=== PATIENT | female | born 1960 | race Caucasian/White ===

== ENCOUNTER 2021-12-10 22:19 | Inpatient (IN) | payer BC ==
[~2021-12-10] VITALS: Ht 165.1 cm; Wt 72.6 kg
[2021-12-10] MEDS ORDERED: FAMOTIDINE 20 MG/2 ML VIAL IV STA (23:22)
[2021-12-10] MEDS ORDERED: ALBUTEROL/IPRATROPIUM 3 ML NEB NEB PRN (23:30)
[2021-12-10] MEDS ORDERED: ONDANSETRON HCL INJ 2MG/ML 2ML 2 MG/ML VIAL IV PRN (23:30)
[2021-12-10] MEDS ORDERED: HYDROCODONE/APAP 5MG-325MG TAB PO PRN (23:30)
[2021-12-10] MEDS ORDERED: BENZONATATE 100 MG CAP PO PRN (23:30)
[2021-12-10] MEDS ORDERED: DEXTROSE 5%/0.9% SOD CHL 1,000 ML IV SCH (23:30)
[2021-12-10] MEDS: ALBUTEROL/IPRATROPIUM 3 ML NEB NEB SCH (23:30)
[2021-12-11] VITALS (10 sets, daily range): BP systolic 93–104; BP diastolic 62–73
[2021-12-11] MEDS: METHYLPREDNISOLONE SOD SUCC 40 MG/ML VIAL 1ML IV SCH ×2 (00:29→08:58)
[2021-12-11] MEDS: ALBUTEROL/IPRATROPIUM 3 ML NEB NEB SCH ×4 (01:27→19:25)
[2021-12-11 06:40] LABS: BASOPHILS % 0.5 % (0.0-1.0); HEMOGLOBIN 11.2 g/dL (12.0-16.0); LYMPHOCYTES # (AUTO) 1.1 (1.0-3.2); LYMPHOCYTES % 16.7 % (18.0-39.1); MEAN CORPUSCULAR HEMOGLOBIN 28.7 pg (28-32); MEAN CORPUSCULAR VOLUME 82.1 fL (81-99); MONOCYTES # (AUTO) 0.2 (0.2-0.8); MONOCYTES % 2.5 % (4.4-11.3); NEUTROPHILS # (AUTO) 5.2 (2.1-6.9); PLATELET COUNT 89 x10e3/uL (140-360); RED CELL DISTRIBUTION WIDTH 13.3 % (11.7-14.4)
[2021-12-11 07:01] LABS: ANION GAP 12.7 mmol/L (8-16); CALCIUM 7.1 mg/dL (8.4-10.2); CREATININE, SERUM 1.76 mg/dL (0.57-1.11)
[2021-12-11 07:06] LABS: POTASSIUM 2.7 mmol/L (3.5-5.1)
[2021-12-11] MEDS ORDERED: POTASSIUM CHLORIDE 20 MEQ TAB CR PO ONE (07:45)
[2021-12-11 08:49] LABS: BAND NEUTROPHILS % (MANUAL) 2 %; LYMPHOCYTES % (MANUAL) 8 % (19-48); MONOCYTES % (MANUAL) 1 % (3.4-9.0); NEUTROPHILS % (MANUAL) 89 % (40-74); PLATELET ESTIMATE SLIGHTLY DECREASED
[2021-12-11 08:50] LABS: PLATELET MORPHOLOGY COMMENT NORMAL; RBC MORPHOLOGY COMMENT NORMAL
[2021-12-11] MEDS: FAMOTIDINE 20 MG/2 ML VIAL IV SCH ×2 (08:59→16:34)
[2021-12-11] MEDS: KCL 20MEQ/.9 SOD CHL 1,000 ML IV SCH ×2 (12:52→23:47)
[2021-12-11 15:14] LABS: ALBUMIN 2.2 g/dL (3.5-5.0); BILIRUBIN,DIRECT 0.3 mg/dL (0.0-0.5)
[2021-12-12] VITALS (8 sets, daily range): BP systolic 97–127; BP diastolic 49–74
[2021-12-12] MEDS: ALBUTEROL/IPRATROPIUM 3 ML NEB NEB SCH ×4 (01:38→19:43)
[2021-12-12 05:49] LABS: BASOPHILS % 0.4 % (0.0-1.0); HEMATOCRIT 28.7 % (34.2-44.1); LYMPHOCYTES # (AUTO) 1.7 (1.0-3.2); LYMPHOCYTES % 22.9 % (18.0-39.1); MEAN CORPUSCULAR HEMOGLOBIN 28.6 pg (28-32); MEAN CORPUSCULAR HGB CONC 34.8 g/dL (31-35); MONOCYTES # (AUTO) 0.5 (0.2-0.8); MONOCYTES % 6.1 % (4.4-11.3); NEUTROPHILS # (AUTO) 5.3 (2.1-6.9); NEUTROPHILS % 69.5 % (38.7-80.0); PLATELET COUNT 117 x10e3/uL (140-360); RED CELL DISTRIBUTION WIDTH 13.8 % (11.7-14.4)
[2021-12-12 06:27] LABS: ANION GAP 9.2 mmol/L (8-16); CALCIUM 7.2 mg/dL (8.4-10.2); CREATININE, SERUM 0.8 mg/dL (0.57-1.11); POTASSIUM 3.2 mmol/L (3.5-5.1)
[2021-12-12 06:55] LABS: PHOSPHORUS 1.5 MG/DL (2.3-4.7)
[2021-12-12 08:42] LABS: LYMPHOCYTES % (MANUAL) 4 % (19-48); MONOCYTES % (MANUAL) 1 % (3.4-9.0); NEUTROPHILS % (MANUAL) 95 % (40-74)
[2021-12-12 08:43] LABS: PLATELET ESTIMATE SLIGHTLY DECREASED; PLATELET MORPHOLOGY COMMENT NORMAL; RBC MORPHOLOGY COMMENT NORMAL
[2021-12-12] MEDS: FAMOTIDINE 20 MG/2 ML VIAL IV SCH ×2 (09:57→17:06)
[2021-12-12] MEDS ORDERED: POTASSIUM CHLORIDE 20 MEQ TAB CR PO ONE (10:30)
[2021-12-12] MEDS ORDERED: POTASSIUM CHLORIDE 10MEQ EA PO ONE (10:30)
[2021-12-12] MEDS: KCL 20MEQ/.9 SOD CHL 1,000 ML IV SCH (11:20)
[2021-12-12] MEDS: ACETAMINOPHEN 325 MG TAB PO PRN ×2 (11:34→21:16)
[2021-12-12] MEDS: ENOXAPARIN SOD INJ 40 MG/0.4 ML SYR SC SCH (17:06)
[2021-12-12] MEDS ORDERED: IOPAMIDOL 370 MG/ML 100 ML INFUS..BTL INJ ONE (19:08)
[2021-12-13] VITALS (7 sets, daily range): BP systolic 110–171; BP diastolic 67–84
[2021-12-13] MEDS: ALBUTEROL/IPRATROPIUM 3 ML NEB NEB SCH ×3 (00:15→22:00)
[2021-12-13] MEDS: KCL 20MEQ/.9 SOD CHL 1,000 ML IV SCH ×2 (03:43→15:09)
[2021-12-13 06:11] LABS: BASOPHILS % 0.6 % (0.0-1.0); EOSINOPHILS % 0.5 % (0.0-6.0); HEMATOCRIT 32.7 % (34.2-44.1); HEMOGLOBIN 11.3 g/dL (12.0-16.0); LYMPHOCYTES % 31.2 % (18.0-39.1); MEAN CORPUSCULAR HGB CONC 34.6 g/dL (31-35); MEAN CORPUSCULAR VOLUME 83.8 fL (81-99); MONOCYTES # (AUTO) 0.4 (0.2-0.8); MONOCYTES % 5.5 % (4.4-11.3); NEUTROPHILS # (AUTO) 3.9 (2.1-6.9); NEUTROPHILS % 60.8 % (38.7-80.0); PLATELET COUNT 130 x10e3/uL (140-360); RED CELL DISTRIBUTION WIDTH 14.3 % (11.7-14.4)
[2021-12-13 06:42] LABS: ALBUMIN 2.2 g/dL (3.5-5.0); ALBUMIN/GLOBULIN RATIO 0.7 (0.8-2.0); CALCIUM 7.5 mg/dL (8.4-10.2); CREATININE, SERUM 0.76 mg/dL (0.57-1.11)
[2021-12-13] MEDS: FAMOTIDINE 20 MG/2 ML VIAL IV SCH ×2 (09:41→16:43)
[2021-12-13 11:38] LABS: BAND NEUTROPHILS % (MANUAL) 1 %; LYMPHOCYTES % (MANUAL) 17 % (19-48); MONOCYTES % (MANUAL) 9 % (3.4-9.0); NEUTROPHILS % (MANUAL) 73 % (40-74); PLATELET ESTIMATE SLIGHTLY DECREASED; PLATELET MORPHOLOGY COMMENT NORMAL; RBC MORPHOLOGY COMMENT NORMAL
[2021-12-13 12:22] LABS: CLARITY,URINE CLEAR (CLEAR); COLOR,URINE YELLOW (YELLOW); KETONES,URINE NEGATIVE (NEGATIVE); LEUKOCYTE ESTERASE ,URINE NEGATIVE (NEGATIVE); NITRITE,URINE NEGATIVE (NEGATIVE); PROTEIN,URINE DIPSTICK NEGATIVE (NEGATIVE); URINE UROBILINOGEN 0.2 mg/dL (0.2 - 1)
[2021-12-13 12:40] LABS: BACTERIA,URINE FEW /HPF; EPITHELIAL CELLS,URINE FEW /LPF; RBC,URINE 0-5 /HPF (0-5); WBC,URINE (MAN) 0-5 /HPF (0-5)
[2021-12-13] MEDS: ENOXAPARIN SOD INJ 40 MG/0.4 ML SYR SC SCH (16:43)
[2021-12-14] VITALS (8 sets, daily range): BP systolic 106–124; BP diastolic 60–79
[2021-12-14] MEDS: ALBUTEROL/IPRATROPIUM 3 ML NEB NEB SCH ×5 (01:00→23:47)
[2021-12-14] MEDS: KCL 20MEQ/.9 SOD CHL 1,000 ML IV SCH ×2 (07:00→12:52)
[2021-12-14] MEDS: FAMOTIDINE 20 MG/2 ML VIAL IV SCH ×2 (08:12→16:38)
[2021-12-14] MEDS ORDERED: FUROSEMIDE INJ 10 MG/ML 4 ML VIAL ONE (13:34)
[2021-12-14] MEDS: ENOXAPARIN SOD INJ 40 MG/0.4 ML SYR SC SCH (16:38)
[2021-12-15] MEDS: KCL 20MEQ/.9 SOD CHL 1,000 ML IV SCH (02:12)
[2021-12-15 04:04] VITALS: BP 129/72
[2021-12-15] MEDS: ALBUTEROL/IPRATROPIUM 3 ML NEB NEB SCH (06:30)
[2021-12-15 08:17] VITALS: BP 113/65
[2021-12-15 08:27] VITALS: BP 113/65
[2021-12-15] MEDS ORDERED: DOXYCYCLINE HY100 MG PO (08:52)
[2021-12-15] MEDS ORDERED: PROAIR HFA INH8.5 GM INH (08:53)
[2021-12-15] MEDS ORDERED: OMEPRAZOLE40 MG PO (08:54)
[2021-12-15] MEDS ORDERED: ZYRTEC-D TABLE1 EACH PO (08:55)
[2021-12-15] MEDS: FAMOTIDINE 20 MG/2 ML VIAL IV SCH (09:00)
== END 2021-12-15 10:40 | disposition home or self-care (01) | DRG 866 ==
LOC: MED/SURG3 22:19 → INTOOBSV 22:19 → OBSVTOIN 12-11 12:06
PROVIDERS: ADMIT Internal Medicine; ATTEND Internal Medicine
DX: B34.9 Viral infection, unspecified (principal); K57.32 Diverticulitis of large intestine without perforation or abscess without bleeding; N13.0 Hydronephrosis with ureteropelvic junction obstruction; E87.1 Hypo-osmolality and hyponatremia; N17.9 Acute kidney failure, unspecified; Z20.822 Contact with and (suspected) exposure to COVID-19; N94.89 Other specified conditions associated with female genital organs and menstrual cycle; E87.6 Hypokalemia; E83.51 Hypocalcemia; N28.1 Cyst of kidney, acquired; D69.6 Thrombocytopenia, unspecified; K76.0 Fatty (change of) liver, not elsewhere classified; E86.0 Dehydration; J32.9 Chronic sinusitis, unspecified
CPT/HCPCS: 36415; 70220; 71046; 71250; 74177; 76705; 76770; 78707; 78708; 80048; 80053; 80076; 81001; 82150; 83690; 83735; 84100; 85025; 85651; 86039; 86141; 87400; 93306; 94640; 94799; A9562; G0378; J0696; J1650; J1940; J2920; J7042; Q9967; U0002